=== PATIENT | female | born 1960 | race Caucasian/White ===

== ENCOUNTER 2020-12-13 14:26 | Outpatient (CLI) | payer MEDICARE, SELFPAY ==
[2020-12-13 15:29] LABS: SARS-CoV-2 RNA PCR Positive (Negative)
== END 2020-12-13 14:27 | disposition home or self-care (01) ==
LOC: CHSLAB 14:32
DX: U07.1 COVID-19 (principal)
CPT/HCPCS: C9803; U0003; U0005

== ENCOUNTER 2021-11-07 09:56 | Outpatient (RCR) | payer MEDICARE, SELFPAY ==
--- NOTE | 2021-11-16 08:53 | PTOPEVAL ---
Thank you for referring Prema Garcia to [facility].? The patient is scheduled to be seen for therapy? ____x/week for ___ weeks. Please review, sign, date and return this plan of care ROGERIO. I agree with and certify that the following plan of care is medically necessary. Referring Physician Date Admitting Provider: Attending Provider: Chayito Kline Referring Provider: *PT Outpatient Evaluation Start: 11/07/21 10:09 Freq: Status: Active Protocol: Document 11/07/21 10:10 TRISTAN (Rec: 11/07/21 10:25 TRISTAN [email or web address]) Therapy Assessment Status Assessment Status Assessment Status Evaluation Evaluation Information Problem Diagnosis right foot pain Onset 10/17/21 Subjective Information Pt. reports she began with Query Text:As Reported By Patient/ foot pain about 3 weeks ago. Family She reports that she had no incident that would have started the pain. she reports having a constant ache in the right foot. She states that pain is worst with walking. She states that she can only walk for about 20 minutes before pain forces her to sit. She reports she is on disability due to her neck and back. She states that pain in the right foot will occassionally wake her at night. She does notice pain relief with elevating her foot . she reports that doing regular activities such as household cleaning and shopping have become difficult due to pain and she requires more frequent rest to relieve pain. She reports that her goal for therapy is to decrease her foot pain. Diagnostic Tests X-Rays For This Problem Yes Prior Level of Function Activity Level (Last 3 Months) Occupation disability Hand Dominance Right Activity of Daily Living Ability Independent Indoor/Home Mobility Independent Community Mobility Independent Stairs Ability Independent Functional Cognition (Planning, Shopping Independent , Taking Medications) Cooking Yes Cleaning Yes Laundr
--- NOTE | 2021-11-30 09:27 | PTOPEVAL1 ---
Thank you for referring Prema Garcia to [facility].? The patient is scheduled to be seen for therapy? ____x/week for ___ weeks. Please review, sign, date and return this plan of care ROGERIO. I agree with and certify that the following plan of care is medically necessary. Referring Physician Date Admitting Provider: Attending Provider: Chayito Kline Referring Provider: *PT Outpatient Evaluation Start: 11/07/21 10:09 Freq: Status: Active Protocol: Document 11/30/21 08:09 ELIZABETH (Rec: 11/30/21 09:25 ELIZABETH [email or web address]) Therapy Assessment Status Assessment Status Assessment Status Discharge Evaluation Information Problem Diagnosis right foot pain Onset 10/17/21 Subjective Information Prema presents today for her Query Text:As Reported By Patient/ 8th PT treatment for right Family foot pain. 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 She does still report achiness in the right foot after being on her feet all day. She feels she has improved 95% overall since initiating PT and feels comfortable continuing PT independently. She will see her primary care physician in January for a routine visit. Pain Assessment Timing of Pain Assessment Timing of Pain Assessment Pre-Treatment Pain Scale Pain Scale Used Numeric (1 - 10) Self Report Pain Assessment Right Dorsal Foot/Feet Reported Pain Level 1 Pain Description Aching Pain Frequency Intermittent Pain Score Pain Score 1: Self Report Additional Pain Score Comments Pain occurs primarily by the end of the day after a lot of walking or being on her feet. Interventions Used Interventions Used By Clinicians Education,Electrical Stimulation,Exercise,Heat, Manual Therapy Techniques Lower Extremity Range of Motion General Lower Extremity Range of Motion Gross Lower Extremity Range of Motion -right ankle DF knee extended Comments 2 degrees -right ankle DF knee at 90 degrees 14 degrees -right ankle PF knee exte
== END 2021-11-30 14:13 | disposition home or self-care (01) ==
LOC: CHSPT 09:56
DX: M79.671 Pain in right foot (principal)
CPT/HCPCS: 97014; 97110; 97140; 97161; G0283

== ENCOUNTER 2021-12-19 11:53 | Emergency (ER) | payer MEDICARE, SELFPAY ==
[2021-12-19] VITALS (20 sets, daily range): BP systolic 136–181; BP diastolic 68–89; PULSE 61–70; RESP 11–22; TEMP 36.1–36.4; O2SAT 96–99
--- NOTE | ~2021-12-19 | CT_ITS ---
EXAMINATION: CT brain wo con INDICATION: Headache COMPARISON: None TECHNIQUE: Standard unenhanced head CT. The dose-length product (DLP) was 605.33 mGy-cm. The mA was a djusted according to patient size. Iterative reconstruction technique was employed. FINDINGS: There is no intracranial hemorrhage, acute infarction, or abnormal mass lesion. The ventric les are normal. There is no abnormal mass effect or midline shift. The russell-white matter differentiat ion is normal. The basal cisterns are patent. The orbits are normal. There is a polyp or mucous reten tion cyst left maxillary sinus. IMPRESSION: 1. No acute intracranial abnormality. Reviewed, dictated and finalized at location B.
--- NOTE | 2021-12-19 12:03 | ED.DIZZY ---
HPI - Dizziness General Chief Complaint: Unspecified Stated Complaint: DIZZY SHOULDER PAIN AND ARM Time Seen by Provider: 12/19/21 12:02 Source: patient Mode of arrival: ambulatory History of Present Illness HPI Narrative: 61-year-old female with a history of anxiety, COVID 1 year ago, presents to the ER with -- headache off and on for the past 2 days. Her headache is generalized with nausea but without any vomiting. She has photophobia. -- Dizziness. she describes that the room around her spins when she moves her head. No focal deficit. No lightheadedness. -- Right shoulder pain. No radiation of the pain. No history of trauma. she did a COVID home test yesterday which was negative. She went to urgent care from where she was directed to come to the ER for further management. the patient takes p.r.n. torsemide for leg swelling as prescribed by her physician MD elicited complaint: dizziness and vertigo Onset (ago): day(s) ( Started 2 days ago) Timing: gradual onset Severity: mild Description: room spinning Context: change in body position History of similar symptoms: No Exacerbating factors: movement/ambulation Relieving factors: nothing Associated symptoms: nausea Related Data Allergies Allergy/AdvReac Type Severity Reaction Status Date / Time daptomycin Allergy Rash Verified 12/19/21 12:15 gabapentin Allergy Blister Verified 12/19/21 12:15 pregabalin [From Lyrica] Allergy Blister Verified 12/19/21 12:15 Review of Systems Review of Systems: All systems reviewed & are unremarkable except as noted in HPI and below Constitutional: Constitutional: Reports as per HPI and Reports no additional constitutional complaints Eyes: Eyes: Reports as per HPI and Reports no additional eye complaints ENT: Reports system reviewed and no additional complaints, except as documented and Reports as per HPI Cardiovascular: Cardiovascular: Reports as per HPI and Reports no additional cardiovascular complaints Respiratory: Respiratory: Reports as per HPI and Reports no additional respiratory complaints Gastrointestinal: Gastrointestinal: Reports as per HPI, Reports no additional gastrointestinal complaints and Reports nausea Genitourinary: Genitourinary: Reports no additional female genitourinary complaints and Reports as per HPI Musculoskeletal: Musculoskeletal: Reports no additional musculoskeletal complaints and Reports as per HPI Integumentary/Breasts: Skin/Breast: Reports system reviewed and no additional complaints, except as docu and Reports as per HPI Neurologic: Reports system reviewed and no additional complaints, except as documented and Reports as per HPI Psychiatric: Psychiatric: Reports no additional psychiatric complaints and Reports as per HPI Endocrine: Endocrine: Reports no additional endocrine complaints and Reports as per HPI Hematologic/Lymphatic: Hematologic/Lymphatic: Reports no additional hematologic/lymphatic complaints and Reports as per HPI Allergic/Immunologic: Allergic/Immunologic: Reports no additional allergic/immunologic complaints and Reports as per HPI [facility] Past Medical History Medical History Abdominal hernia Anxiety COVID Exam Const: General: healthy appearing and no acute distress Nutritional Appearance: well nourished Orientation/consciousness: patient oriented x3 Limitations: no limitations Other: patient is not orthostatic HENMT: Head: normal to inspection Ears: TM's normal bilaterally General nose exam: Normal external nose present Face and sinus: normal facial exam Mouth: Yes Normal oral and palatal mucosa present Throat: posterior oropharynx normal Eyes: Conjunctivae: conjunctivae normal Pupils: Equal, round and reactive pupils present EOM: EOMs intact bilaterally Direct Ophthalmoscopy: no photophobia Neck: Neck: normal visual inspection, no lymphadenopathy and no meningeal signs Chest: Chest palpation &
--- NOTE | 2021-12-19 12:14 | ECG_ITS ---
Measurements Intervals [place] Rate: 61 P: -6 WV: 185 QRS: 12 QRSD: 92 T: 22 QT: 424 QTc: 427 Interpretive Statements SINUS RHYTHM LOW QRS VOLTAGE IN PRECORDIAL LEADS ANTEROSEPTAL INFARCT, AGE INDETERMINATE ABNORMAL ECG NO PREVIOUS ECG AVAILABLE FOR COMPARISON Electronically Signed On 12-19-2021 14:40:57 CDT by Jasvir Mac D.O.
--- NOTE | 2021-12-19 12:23 | PC.NURSE ---
pt off floor to CT scan
[2021-12-19 13:05] LABS: Basophils Absolute Auto 0.05 K/mm3 (0.00-0.10); Basophils Percent Auto 0.4 % (0.0-1.0); Eosinophils Absolute Auto 0.19 K/mm3 (0.02-0.50); Eosinophils Percent Auto 1.6 % (1.0-6.0); Hematocrit 42.9 % (35.0-49.0); Hemoglobin 13.7 g/dL (12.0-15.0); Immature Granulocyte Absolute 0.08 K/mm3 (0.00-0.00); Immature Granulocyte Percent A 0.7 % (0.0-0.0); Lymphocytes Absolute Auto 1.47 K/mm3 (1.10-4.50); Lymphocytes Percent Auto 12.3 % (18.0-42.0); Mean Corpuscular HGB Conc 31.9 g/dL (32.0-36.0); Mean Corpuscular Hemoglobin 30.2 pg (27.0-31.0); Mean Corpuscular Volume 94.7 fL (78.0-102.0); Mean Platelet Volume 9.4 fl (9.2-11.8); Monocytes Absolute Auto 0.69 K/mm3 (0.10-0.90); Monocytes Percent Auto 5.8 % (2.0-11.0); Neutrophils Absolute Auto 9.5 K/mm3 (1.7-7.2); Neutrophils Percent Auto 79.2 % (50.0-70.0); Platelet Count Result 180 K/mm3 (150-420); Red Blood Count 4.53 M/mm3 (4.20-5.40); Red Cell Distribution Width 12.2 % (11.6-14.4)
[2021-12-19 13:07] LABS: Add Urine Microscopic? YES; Appearance Urine Clear (Clear); Bilirubin Urine Negative (Negative); Blood Urine Negative (Negative); Color Urine Yellow (Yellow); Glucose Urine UA Negative (Negative); Ketones Urine Trace (Negative); Leukocyte Esterase Ur Negative (Negative); Nitrate Urine Negative (Negative); Protein Urine 3+ (Negative); Specific Grav Ur 1.025 (1.010-1.020); Urobilinogen Urine 0.2 mg/dL (0.2-1.0)
[2021-12-19 13:12] LABS: Bacteria Urine Trace /hpf; Mucus Urine Few /lpf; RBC Urine None seen /hpf (0-2); Squamous Epithelial Cell Urine Few /hpf (Few)
[2021-12-19 13:25] LABS: Alanine Aminotransferase 31 U/L (14-59); Albumin Level 3.3 g/dL (3.4-5.0); Alkaline Phosphatase 188 U/L (46-116); Anion Gap 6 mmol/L (8-16); Aspartate Amino Transferase 21 U/L (15-37); Bilirubin,Total 0.2 mg/dL (0.00-1.00); Blood Urea Nitrogen 17 mg/dL (7-18); Calcium 8.7 mg/dL (8.5-10.1); Carbon Dioxide 29 mmol/L (21-32); Chloride 106 mmol/L (98-108); Estimated CRCL calculation 49 ml/min; Estimated Glomerular Filt Rate 43; Glucose 114 mg/dL (70-99); NT Pro B Type Natriuretic Pept 111 pg/mL (0-125); Osmolality Calculated 294 mOsm/kg (285-295); Potassium 3.2 mmol/L (3.5-5.1); Sodium 141 mmol/L (136-145); Total Protein 6.9 g/dL (6.4-8.2)
[2021-12-19 13:30] LABS: Thyroid Stimulating Hormone 1.91 uIU/mL (0.36-3.74); Troponin I 18.4 ng/L (0.00-60.4)
[2021-12-19 13:41] LABS: SARS-CoV-2 RNA PCR Negative (Negative)
[2021-12-19] MEDS: POTASSIUM CHLORIDE 20 MEQ TABLET PO (14:15)
== END 2021-12-19 14:27 | disposition home or self-care (01) ==
PROVIDERS: Emergency Provider Internal Medicine Critical Care Medicine
DX: H81.10 Benign paroxysmal vertigo, unspecified ear (principal); N28.9 Disorder of kidney and ureter, unspecified; E87.6 Hypokalemia; Z20.822 Contact with and (suspected) exposure to COVID-19; F41.9 Anxiety disorder, unspecified; Z79.899 Other long term (current) drug therapy
CPT/HCPCS: 36415; 70450; 80053; 81001; 83880; 84443; 84484; 85025; 93005; 99284; A9270; C9803; U0003; U0005

== ENCOUNTER 2022-06-14 09:58 | Outpatient (RCR) | payer MEDICARE, SELFPAY ==
--- NOTE | 2022-06-14 10:55 | PTOPEVAL1 ---
Assessment and note entered by Jennifer Stein DPT Evaluation Information Assessment Status Evaluation Diagnosis R knee pain Onset 06/07/22 Subjective Information Patient reports she has had knee pain for the last several years with high increase in pain the last 2-3 weeks. She is under going R TKA 07/03/22 and is here for pre-op appointment to instruct HEP. She reports she has arthritis and had been getting injections and they were helping but recently injections have stopped working. She has difficulty walking, standing, stair navigation and sitting for prolonged periods of time. She reports that when she ambulates prolonged periods she will use a STC. She reports she also has L knee pain and plans to have that replaced later this year Reported Pain Level Pain Score 3: Self Report Assessment PT Clinical Summary Patient is a 61 year old female who presents to PT for pre op appointment prior to R TKA on 07/03/22. Patient demonstrates decreased R knee strength and ROM as well as increased pain. Patient has good understanding of HEP this date and is able to demonstrate all with independence. PT will be on hold until post surgery. Plan of Care Interventions Electrical Stimulation,Gait Training,Hot Pack/Cold Pack,Manual Therapy,Neuro Re-education,Patient/ Caregiver Educati,Therapeutic Activities, Therapeutic Exercise,Self-Care/Home Management PT Services Indicated Yes Treatment Frequency and 1x for HEP education. Hold PT for post op Duration evaluation These treatments will address the objective and functional deficits as defined above. The patient will be advanced safely and appropriately in order for the patient to progress towards his/her prior level of function. Additional exercises will be introduced and as well as a comprehensive home exercise program upon discharge, if needed, ?to ensure carryover of functional gains achieved in the clinic. This treatment plan has been reviewed and agreement upon by the patient.
--- NOTE | 2022-07-10 16:33 | PTOPREEVAL ---
Assessment and note entered by Jennifer Stein DPT Evaluation Information Assessment Status Re-evaluation Diagnosis R knee pain s/p R TKA Onset 07/03/22 Subjective Information Patient had R TKA on 07/03/22. She ambulates to facility with [facility]. She reports she has had difficulty with pain levels. She had to stay 2 nights due to pain levels. Her bandage was changed today with no redness or irritation noted. She reports she has been performing exercises given from . RTMD 07/17/22 Reported Pain Level Pain Score 7: Self Report Assessment PT Clinical Summary Patient returns to PT following R TKA on 07/03/22. She demonstrates decreased R knee ROM, decreased R LE strength and increased swelling of the R LE. She is limited in standing, walking and performing house hold tasks. She would benefit from skilled PT to address impairments and return to PLOF. Plan of Care Interventions Electrical Stimulation,Gait Training,Hot Pack/Cold Pack,Manual Therapy,Neuro Re-education,Patient/ Caregiver Educati,Therapeutic Activities, Therapeutic Exercise,Self-Care/Home Management PT Services Indicated Yes Treatment Frequency and 2x weekly for 12 visits Duration These treatments will address the objective and functional deficits as defined above. The patient will be advanced safely and appropriately in order for the patient to progress towards his/her prior level of function. Additional exercises will be introduced and as well as a comprehensive home exercise program upon discharge, if needed, ?to ensure carryover of functional gains achieved in the clinic. This treatment plan has been reviewed and agreement upon by the patient.
--- NOTE | 2022-08-09 16:03 | PTOPREEVAL ---
Assessment and note entered by JT File, PT Evaluation Information Assessment Status Progress Diagnosis R knee pain s/p R TKA Onset 07/03/22 Subjective Information patient reports she fell yesterday. she reports she was going outside and tripped on the transition piece. she reports she fell on the R LE and flexed the knee fully. she reports since then her pain in the R knee has been increased, and the R knee feels more tight. Reported Pain Level Pain Score 6: Self Report Assessment PT Clinical Summary mrs. richey presents to skilled PT for her 11th skilled therapy visit. prior to this visit she was continuing to display tightness in the R knee with flexion and extension rom. however, she has just recently had a fall which has increased her pain and bernardo her R knee flexion worse. she displays good+ strength of the quads and hamstrings, despite tenderness near the insertion of each of the R LE. she would benefit from continued skilled PT to achieve remaining goals ( thus far has only met goal for HEP performance) to improve her quality of life and functional activity performance. Plan of Care Interventions Electrical Stimulation,Gait Training,Hot Pack/Cold Pack,Intermittent Compression,Manual Therapy, Neuro Re-education,Patient/Caregiver Educati, Therapeutic Activities,Therapeutic Exercise,Self- Care/Home Management PT Services Indicated Yes Treatment Frequency and continue skilled PT 2x weekly for 9 more visits Duration from today These treatments will address the objective and functional deficits as defined above. The patient will be advanced safely and appropriately in order for the patient to progress towards his/her prior level of function. Additional exercises will be introduced and as well as a comprehensive home exercise program upon discharge, if needed, ?to ensure carryover of functional gains achieved in the clinic. This treatment plan has been reviewed and agreement upon by the patient.
== END 2022-09-18 23:59 | disposition home or self-care (01) ==
LOC: CHSPT 09:58
PROVIDERS: Visit Provider Orthopaedic Surgery
DX: M17.12 Unilateral primary osteoarthritis, left knee (principal)
CPT/HCPCS: 97014; 97016; 97110; 97112; 97140; 97150; 97161; 97530; G0283

== ENCOUNTER 2025-02-09 11:27 | Outpatient (CLI) | payer MEDICARE, SELFPAY ==
[2025-02-09 13:13] LABS: Hematocrit 36.5 % (35.0-49.0); Hemoglobin 11.1 g/dL (12.0-15.0); Immature Granulocyte Percent A 0.6 % (0.0-0.0); Lymphocytes Absolute Auto 1.62 K/mm3 (1.10-4.50); Mean Corpuscular HGB Conc 30.4 g/dL (32-36); Mean Corpuscular Hemoglobin 29.8 pg (27.0-31.0); Mean Corpuscular Volume 98.1 fL (78.0-102.0); Nucleated Red Blood Cells Absolute Auto 0.00 K/mm3 (0.00-0.00); Nucleated Red Blood Cells Perc 0.0 % (0-0.0); Platelet Count Result 159 K/mm3 (150-420); Red Blood Count 3.72 M/mm3 (4.20-5.40); White Blood Count 10.3 K/mm3 (4.8-10.8)
[2025-02-09 13:15] LABS: Appearance Urine Clear (Clear)
[2025-02-09 13:16] LABS: Glucose Urine UA Negative (Negative); Nitrate Urine Positive (Negative); Specific Grav Ur >= 1.030 (1.010-1.020)
[2025-02-09 13:17] LABS: Add Urine Microscopic? YES; Leukocyte Esterase Ur Trace LEU/UL (Negative)
[2025-02-09 13:21] LABS: Albumin Level 4.5 g/dL (3.5-5.1); Anion Gap 13 mmol/L (4-12); Blood Urea Nitrogen 21 mg/dL (7-17); Calcium 9.1 mg/dL (8.4-10.2); Carbon Dioxide 18 mmol/L (22-30); Chloride 115 mmol/L (98-107); Estimated Glomerular Filt Rate 23; Glucose 96 mg/dL (65-110); Osmolality Calculated 305 mOsm/kg (285-295); Potassium 4.2 mmol/L (3.4-5.0); Sodium 146 mmol/L (137-145)
[2025-02-09 13:30] LABS: Total Protein Urine Random 56 mg/dL; Ur Ttl Prot Creatinine Ratio 0.26 mg/mg (0-0.20)
[2025-02-10 07:49] LABS: Parathyroid Intact 57.1 (7.5-53.5)
== END 2025-02-09 11:28 | disposition home or self-care (01) ==
PROVIDERS: PCP Internal Medicine Nephrology; Visit Provider Internal Medicine Nephrology
DX: I12.9 Hypertensive chronic kidney disease with stage 1 through stage 4 chronic kidney disease, or unspecified chronic kidney disease (principal); N18.30 Chronic kidney disease, stage 3 unspecified; R80.1 Persistent proteinuria, unspecified; N25.81 Secondary hyperparathyroidism of renal origin
CPT/HCPCS: 36415; 80069; 81001; 82570; 83970; 84156; 85025; 87086; 87186